=== PATIENT | female | born 1965 | race Caucasian/White ===

== ENCOUNTER 2019-08-22 14:12 | Outpatient (CLI) | payer OTHER, SELFPAY ==
--- NOTE | ~2019-08-22 | US_ITS ---
EXAMINATION: US venous doppler [facility] DATE: 08/22/2019 15:15 INDICATION: Deep venous thrombosis TECHNIQUE: Grayscale ultrasound images without and with compression and Doppler ultrasound images of the bilateral lower extremity veins were obtained. COMPARISON: None. FINDINGS: The visualized portions of right common femoral vein, profunda (deep) femoral vein, femoral vein, pop liteal vein, posterior tibial veins, peroneal veins, gastrocnemius vein and greater saphenous vein ou tflow are patent. The visualized portions of left common femoral vein, profunda femoral vein, femoral vein, popliteal v ein, posterior tibial veins, peroneal veins, gastrocnemius vein and greater saphenous vein outflow ar e patent. IMPRESSION: 1. No deep venous thrombosis in either lower limb. Reviewed, dictated and finalized at location A.
== END 2019-08-22 14:13 | disposition home or self-care (01) ==
LOC: ANHIMG 14:20
PROVIDERS: PCP Family Medicine; Visit Provider Internal Medicine Cardiovascular Disease
DX: Z13.9 Encounter for screening, unspecified (principal); I82.409 Acute embolism and thrombosis of unspecified deep veins of unspecified lower extremity
CPT/HCPCS: 93970

== ENCOUNTER 2019-08-26 14:00 | Outpatient (CLI) | payer OTHER, SELFPAY ==
--- NOTE | ~2019-08-26 | CT_ITS ---
EXAMINATION: CT abdomen pelvis w con DATE: 08/26/2019 15:01 INDICATION: Follow-up liver mass. TECHNIQUE: Computed tomography (CT) of the abdomen and pelvis was performed with 100 cc Omnipaque 350 intravenous contrast. The dose-length product was 349.66 mGy-cm. Automated exposure control and iter ative reconstruction technique were employed. COMPARISON: Comparison to multiple prior studies sequentially, with oldest reviewed study dated 05/2015. FINDINGS: Lung bases are unremarkable. Heart size normal. No significant pleural or pericardial effus ion. No focal soft tissue abnormality. Retroaortic left renal vein. There are cholecystectomy clips. No evidence for aortic aneurysm. No lymphadenopathy. No significant change to 3.4 x 2.6 cm liver mass involving the left hepatic lobe superiorly with georgette pheral nodular enhancement, compatible with hemangioma. There is mass effect on the adjacent IVC, alt rema no definite infiltration of the IVC. The spleen, pancreas, adrenal glands and kidneys are unrem arkable. No hydronephrosis. Nonobstructive bowel pattern. No free air or free fluid. No lymphadenopat hy. Mild lumbar spondylosis. Mild dextrocurvature of the thoracolumbar spine. IMPRESSION: 1. No acute abdominal abnormality. 2: Stable left hepatic lobe mass superiorly with characteristics compatible with hemangioma. Reviewed, dictated and finalized at location A. IMPRESSION: 1. No acute abdominal abnormality. 2: Stable left hepatic lobe mass superiorly with characteristics compatible wit h hemangioma.
== END 2019-08-26 14:01 | disposition home or self-care (01) ==
LOC: ANHIMG 14:01
PROVIDERS: PCP Family Medicine; Visit Provider Internal Medicine Cardiovascular Disease
DX: R16.0 Hepatomegaly, not elsewhere classified (principal)
CPT/HCPCS: 74177; Q9967

== ENCOUNTER 2019-11-14 00:47 | Outpatient (CLI) | payer OTHER, SELFPAY ==
[2019-11-14 16:32] LABS: SARS-CoV-2 RNA PCR Negative
== END 2019-11-14 00:48 | disposition home or self-care (01) ==
LOC: ANHCOVIDDT 00:47
PROVIDERS: PCP Family Medicine; Visit Provider Internal Medicine Gastroenterology
DX: Z01.812 Encounter for preprocedural laboratory examination (principal); Z20.828 Contact with and (suspected) exposure to other viral communicable diseases
CPT/HCPCS: 87635; C9803; U0003

== ENCOUNTER 2019-11-16 00:38 | Day surgery (SDC) | payer OTHER, SELFPAY ==
[2019-11-07 15:00] VITALS: BMI 23.1
[2019-11-16 06:25] VITALS: BP 95/62; PULSE 66; RESP 16; TEMP 37.1; O2SAT 98; BMI 23.6
[2019-11-16] MEDS: LACTATED RINGERS 1,000 ML 150 ML IV CONT (06:38)
--- NOTE | 2019-11-16 07:01 | WPDANESEPPF ---
Anes - Initial Pre Proc Eval Procedure: Operation Date: 11/16/19 07:30 Proposed Procedures p Esophagogastroduodenoscopy - Maximo Mora MD Date/Time: 11/16/19 07:01 Surgeon: Maximo Mora MD Pre Op Diagnosis: thickend pylorus,abn ct scan,scott's Patient Data Age: 54 Gender: F Height: 5 ft 6 in Weight: 66.5 kg Last Vital Signs Temp 37.1 C 11/16/19 06:25 Pulse 66 11/16/19 06:25 Resp 16 11/16/19 06:25 BP 95/62 L 11/16/19 06:25 Pulse Ox 98 11/16/19 06:25 Allergies Allergy/AdvReac Type Severity Reaction Status Date / Time celecoxib Allergy Unknown Made her Verified 11/16/19 06:23 feel worse Penicillins AdvReac Intermediate Nausea and Verified 11/16/19 06:23 Vomiting Home Medications Medication Instructions Recorded Confirmed Type alendronate 70 mg tablet 70 mg PO WEEKLY #12 tablet 06/09/19 11/16/19 Rx escitalopram oxalate 10 mg tablet 10 mg PO DAILY 08/31/19 11/16/19 History conjugated estrogens [Premarin] 1 applic VAGINAL WEEKLY 11/07/19 11/16/19 History krill oil 500 mg PO DAILY 11/07/19 11/16/19 History ascorbic acid (vitamin C) mg PO 11/16/19 History calcium carbonate [Calcium 600] 600 mg PO BID 11/16/19 11/16/19 History Patient hx anesthesia problems: none Family hx anesthesia problems: none PMFSH Past Medical History Medical History (Updated 11/16/19 @ 07:02 by Gabriel Amos MD) Abdominal pain Bloating Constipation Liver hemangioma Liver mass Osteoporosis SVT (supraventricular tachycardia) Family History Family History Mother Patient's mother is in good health Father Family history of chronic obstructive pulmonary disease, Onset Age: 71 Patient's father is Social History Social History Smoking packs per day: 0.5 Smoking cigarettes per day: 10.0 Years smoked: 10 Smoking pack-years: 5.00 Smoking status: Former smoker Tobacco type: cigarettes Second hand tobacco smoke exposure: Yes Smoking end date: 03/09/95 Alcohol intake: never Substance use: never Substance use type: does not use Living arrangements: with family Gender identity (if verbalized by the patient): Female Spiritual care concerns: No Anes - Eval Final PreProcedure Day of Procedure 11/16/19 07:01 Patient weight: normal Heart: regular rate and rhythm Lungs: clear to auscultation Airway: Mallampati scale class II Neurological: alert and oriented Last oral intake: >/= 8 hours ASA classification: II Emergent: no Anesthetic plan: proceed Anesthesia type and monitoring: general GIVS and standard monitoring Informed Consent: The patient's anesthetic plan and its attendant risks and benefits were discussed with the patient/family/POA. Questions were solicited and answers provided to the satisfaction of the patient/family/POA.
--- NOTE | 2019-11-16 07:20 | PM.HPGS ---
History of Present Illness History of Present Illness Consent: Risks, benefits, and alternatives have been discussed and questions answered. Patient agrees to proceed with procedure. Chief complaint: thickend pylorus,abn ct scan,scott's Narrative: Jelly Carbajal is a 54 year old female who is here because of an abnormal CT scan which shows thickening of the pylorus PMFSH Past Medical History Medical History Abdominal pain Bloating Constipation Liver hemangioma Liver mass Osteoporosis SVT (supraventricular tachycardia) Family History Family History Mother Patient's mother is in good health Father Family history of chronic obstructive pulmonary disease, Onset Age: 71 Patient's father is Social History Social History Smoking packs per day: 0.5 Smoking cigarettes per day: 10.0 Years smoked: 10 Smoking pack-years: 5.00 Smoking status: Former smoker Tobacco type: cigarettes Second hand tobacco smoke exposure: Yes Smoking end date: 03/09/95 Alcohol intake: never Substance use: never Substance use type: does not use Living arrangements: with family Gender identity (if verbalized by the patient): Female Spiritual care concerns: No Meds Home Medications and Allergies Home Medications Medication Instructions Recorded Confirmed Type alendronate 70 mg tablet 70 mg PO WEEKLY #12 tablet 06/09/19 11/16/19 Rx escitalopram oxalate 10 mg tablet 10 mg PO DAILY 08/31/19 11/16/19 History conjugated estrogens [Premarin] 1 applic VAGINAL WEEKLY 11/07/19 11/16/19 History krill oil 500 mg PO DAILY 11/07/19 11/16/19 History ascorbic acid (vitamin C) mg PO 11/16/19 History calcium carbonate [Calcium 600] 600 mg PO BID 11/16/19 11/16/19 History Allergies Allergy/AdvReac Type Severity Reaction Status Date / Time celecoxib Allergy Unknown Made her Verified 11/16/19 06:23 feel worse Penicillins AdvReac Intermediate Nausea and Verified 11/16/19 06:23 Vomiting Vital Signs Vital Signs - 24 hr 11/16/19 06:25 Temperature 37.1 C Pulse Rate 66 Respiratory Rate 16 Blood Pressure 95/62 L Pulse Oximetry 98 Exam Const: General: alert Orientation/consciousness: patient oriented x3 Resp: Auscultation: clear to auscultation bilaterally Cardio: Rhythm: regular rhythm GI: GI Palp: Yes Soft to palpation and No Tenderness to palpation present (GI) Neuro: General: patient oriented x3 Assessment and Plan Assessment and plan (1) Abnormal CT scan, gastrointestinal tract: Code(s): R93.3 - Abnormal findings on diagnostic imaging of other parts of digestive tract Status: Acute Assessment and Plan: EGD with possible biopsy or dilatation or cautery.
[2019-11-16 07:38] VITALS: BP 95/53; PULSE 62; RESP 20; O2SAT 99
[2019-11-16 07:48] VITALS: BP 89/70; PULSE 63; RESP 19; O2SAT 100
[2019-11-16 07:58] VITALS: BP 102/65; PULSE 55; RESP 17; O2SAT 100
== END 2019-11-16 08:17 | disposition home or self-care (01) ==
PROVIDERS: PCP Family Medicine; Visit Provider Internal Medicine Gastroenterology
PROC: 0DJ08ZZ Inspection of Upper Intestinal Tract, Via Natural or Artificial Opening Endoscopic (ICD-10-PCS; CPT 43235; principal; 2019-11-16 07:30)
DX: K29.50 Unspecified chronic gastritis without bleeding (principal); I47.1 Supraventricular tachycardia; M81.0 Age-related osteoporosis without current pathological fracture; Z87.891 Personal history of nicotine dependence
CPT/HCPCS: 43239; 87081; J2704; J7120

== ENCOUNTER 2019-12-20 17:32 | Outpatient (CLI) | payer OTHER, SELFPAY ==
--- NOTE | ~2019-12-20 | MM_ITS ---
MM screening mammo BI INDICATION: Screening. TECHNIQUE: Screening digital mammogram submitted. CAD analysis submitted and interpreted. COMPARISON: Comparison to multiple prior studies sequentially, with oldest reviewed study dated 03/2015. FINDINGS: There has been no significant change when comparison was made to prior films. The breasts a re heterogenously dense, which may obscure small masses. No mammographic evidence for malignancy in either breast. Regular clinical breast examination in annual mammography are recommended. IMPRESSION: 1: NO MAMMOGRAPHIC EVIDENCE OF MALIGNANCY IN EITHER BREAST AND NO CHANGE. RECOMMENDATION: Routine yearly screening mammogram and regular clinical breast examination are recomm ended. BI-RADS CATEGORY 1 - NEGATIVE Reviewed, dictated and finalized at location A. IMPRESSION: 1: NO MAMMOGRAPHIC EVIDENCE OF MALIGNANCY IN EITHER BREAST AND NO CHANGE. RECOMMENDATION: Routine yearly screening mammogram and regular clinical breast examination are recommended. BI-RADS CATEGORY 1 - NEGATIVE
== END 2019-12-20 17:33 | disposition home or self-care (01) ==
LOC: ANHIMG 17:34
PROVIDERS: PCP Family Medicine; Visit Provider Family Medicine
DX: Z12.31 Encounter for screening mammogram for malignant neoplasm of breast (principal)
CPT/HCPCS: 77067

== ENCOUNTER 2020-02-01 10:36 | Outpatient (CLI) | payer OTHER, SELFPAY ==
--- NOTE | ~2020-02-01 | XR_ITS ---
EXAMINATION: XR chest 2V 02/01/2020 10:56 INDICATION: Cough PROCEDURE: 2 view chest COMPARISON: 09/21/2013 FINDINGS: The lungs are clear. The cardiomediastinal silhouette is within normal limits. There are no pleural effusions. There is no pneumothorax suspected. IMPRESSION: 1: NO ACUTE CARDIOPULMONARY DISEASE. Reviewed, dictated and finalized at location A. 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
== END 2020-02-01 10:37 | disposition home or self-care (01) ==
PROVIDERS: PCP Family Medicine; Visit Provider Nurse Practitioner Family
DX: R05 Cough (principal)
CPT/HCPCS: 71046

== ENCOUNTER 2020-04-05 12:24 | Outpatient (CLI) | payer OTHER, SELFPAY ==
--- NOTE | 2020-04-08 13:51 | WPDPFTINT ---
PFT Interpretation PFT Interpretation: This PFT met all criteria for ATS standards and reproducibility FEV/FVC post bronchodilator 80% FEV1 125% FVC 117% or 3.97 liters FEV1 improved by 280 ml and 10% post bronchodilator TLC 109% RV 97% RV/TLC 33% DLCO 77% when adjusted for alveolar volume but not adjusted for hemoglobin Flow volume loops were difficult to interpret Impression: No significant obstruction but slight improvement in post bronchodilator FEV1 may suggest Asthma or reactive airway disease. Mildly decreased diffusion capacity is also present. Clinical correlation is advised.
== END 2020-04-05 12:25 | disposition home or self-care (01) ==
LOC: ANHPFT 12:25
PROVIDERS: PCP Family Medicine; Visit Provider Nurse Practitioner Family
DX: R05 Cough (principal)
CPT/HCPCS: 94060; 94726; 94729

== ENCOUNTER 2020-06-18 09:44 | Outpatient (CLI) | payer OTHER, SELFPAY | END 2020-06-18 09:45 | disposition home or self-care (01) | LOC: ANHCOVIDVC 09:44 | PROVIDERS: PCP Family Medicine | DX: Z23 Encounter for immunization (principal) | CPT/HCPCS: 0002A; 91300 ==

== ENCOUNTER 2020-07-09 09:45 | Outpatient (CLI) | payer OTHER, SELFPAY | END 2020-07-09 09:46 | disposition home or self-care (01) | LOC: ANHCOVIDVC 09:45 | PROVIDERS: PCP Family Medicine | DX: Z23 Encounter for immunization (principal) | CPT/HCPCS: 0002A; 91300 ==

== ENCOUNTER 2021-01-24 08:33 | Outpatient (CLI) | payer OTHER, SELFPAY ==
--- NOTE | ~2021-01-24 | MM_ITS ---
EXAMINATION: MM screening [facility] BI w just[facility] HISTORY: Screening mammogram TECHNIQUE: Craniocaudal and mediolateral oblique 3-D tomosynthesis images were obtained and synthetic 2-D images were generated. CAD analysis was submitted and interpreted. COMPARISON: 12/20/2019, 10/26/2018 BREAST PARENCHYMAL COMPOSITION: There are scattered areas of fibroglandular density. FINDINGS: There is no evidence of suspicious mass, calcification, or architectural distortion to sugg est malignancy in either breast. There has been no suspicious interval change. IMPRESSION: 1. No mammographic evidence of malignancy. 2. Recommend routine screening mammography in one year. BI-RADS Category 1: Negative Reviewed, dictated and finalized at location A. 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
== END 2021-01-24 08:34 | disposition home or self-care (01) ==
LOC: ANHIMG 08:35
PROVIDERS: PCP Family Medicine; Visit Provider Family Medicine
DX: Z12.31 Encounter for screening mammogram for malignant neoplasm of breast (principal)
CPT/HCPCS: 77063; 77067

== ENCOUNTER 2022-03-18 10:28 | Outpatient (CLI) | payer OTHER, SELFPAY ==
--- NOTE | ~2022-03-18 | MM_ITS ---
EXAMINATION: MM screening [facility] BI w justyna HISTORY: Screening mammogram TECHNIQUE: Craniocaudal and mediolateral oblique 3-D tomosynthesis images were obtained and synthetic 2-D images were generated. CAD analysis was submitted and interpreted. COMPARISON: 01/24/2021, 12/20/2019, 10/26/2018 bilateral screening mammogram examinations BREAST PARENCHYMAL COMPOSITION: There are scattered areas of fibroglandular density. FINDINGS: There is no evidence of suspicious mass, calcification, or architectural distortion to sugg est malignancy in either breast. There has been no suspicious interval change. IMPRESSION: 1. No mammographic evidence of malignancy. 2. Recommend routine screening mammography in one year. BI-RADS Category 1: Negative Reviewed, dictated and finalized at location A. 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
== END 2022-03-18 10:29 | disposition home or self-care (01) ==
LOC: ANHIMG 10:29
PROVIDERS: PCP Family Medicine; Visit Provider Family Medicine
DX: Z12.31 Encounter for screening mammogram for malignant neoplasm of breast (principal)
CPT/HCPCS: 77063; 77067